=== PATIENT | female | born 1940 | race Caucasian/White ===

== ENCOUNTER 2016-10-03 20:28 | Inpatient (IN) | payer MEDICARE ==
[~2016-10-03] VITALS: Ht 160 cm; Wt 58.9 kg
[~2016-10-03 20:28] MED LIST: ASPI-650 PO; ATOR10TA9 PO; DILT240C77 PO; SERT50TA5 PO
[2016-10-03] MEDS ORDERED: LABETALOL 5MG/ML, 20ML IVPush ONE (21:00)
[2016-10-03] MEDS ORDERED: ONDANSETRON 2MG/ML, 2ML IVPush ONE (21:00)
[2016-10-03] MEDS ORDERED: MORPHINE SULFATE 4 MG/ML, 1ML IVPush PRN (21:00)
[2016-10-03] MEDS ORDERED: SODIUM CHLORIDE 0.9% 1,000ML IVBOLUS ONE (21:00)
[2016-10-03] MEDS ORDERED: NITROGLYCERIN OINT 2%, 1GM TP ONE ×2 (21:00→21:17)
[2016-10-03] MEDS ORDERED: SODIUM CHLORIDE FLUSH 10ML SYR IVF ONE (21:00)
[2016-10-03] MEDS ORDERED: PROCHLORPERAZINE 5 MG/ML, 2ML IVPush ONE (21:00)
[2016-10-03] MEDS ORDERED: POTA10TA12 PO (21:09)
[2016-10-03] MEDS ORDERED: MORPHINE SULFATE 4 MG/ML, 1ML ONE (21:17)
[2016-10-03] MEDS ORDERED: LABETALOL 5MG/ML, 20ML ONE (21:17)
[2016-10-03] MEDS ORDERED: PROCHLORPERAZINE 5 MG/ML, 2ML ONE (21:17)
[2016-10-03] MEDS ORDERED: ONDANSETRON 2MG/ML, 2ML ONE (21:18)
[2016-10-03 21:30] LABS: BLOOD UREA NITROGEN 16 mg/dL (7-18)
[2016-10-03 21:36] LABS: IS PT STATUS REG ER OR PRE ER? YES
[2016-10-03] MEDS ORDERED: OMNIPAQUE 350 MG/ML, 100ML BOTTLE ONE (22:28)
[2016-10-04] MEDS ORDERED: ACETAMINOPHEN 325 MG TABLET PO PRN (01:00)
[2016-10-04] MEDS ORDERED: NITROGLYCERIN 0.4 MG BOTTLE (25 TABS) SL PRN (01:00)
[2016-10-04] MEDS ORDERED: morphine SULFATE 10 MG/ML, 1ML IVPush PRN (01:00)
[2016-10-04] MEDS ORDERED: ONDANSETRON 2MG/ML, 2ML IVPush PRN (01:00)
[2016-10-04] MEDS ORDERED: ATORVASTATIN 10 MG TABLET PO SCH (01:00)
[2016-10-04] MEDS ORDERED: BISACODYL 10 MG SUPP PR PRN (01:00)
[2016-10-04] MEDS ORDERED: hydrALAzine 20 MG/ML, 1ML IV PRN (01:00)
[2016-10-04] MEDS ORDERED: POLYETHYLENE GLYCOL 17 GM PACKET PO PRN (01:00)
[2016-10-04 01:05] VITALS: BP 179/90
[2016-10-04] MEDS: CARVEDILOL 12.5 MG TABLET PO SCH ×3 (01:54→18:00)
[2016-10-04 03:28] LABS: IS PT STATUS REG ER OR PRE ER? NO
[2016-10-04 05:45] VITALS: BP 175/82
[2016-10-04 07:40] VITALS: BP 166/93
[2016-10-04] MEDS ORDERED: SODIUM CHLORIDE FLUSH 3ML SYRINGE IVF SCH (09:00)
[2016-10-04] MEDS ORDERED: ENOXAPARIN 40 MG/0.4 ML SQ SCH (09:00)
[2016-10-04] MEDS ORDERED: ASPIRIN 325 MG TABLET EC PO SCH (09:00)
[2016-10-04] MEDS ORDERED: POTASSIUM CHLORIDE 10 MEQ TABLET.ER PO SCH (09:00)
[2016-10-04] MEDS ORDERED: SERTRALINE 50MG TABLET PO SCH (09:00)
[2016-10-04] MEDS ORDERED: DILTIAZEM 240 MG CAP.ER.24H PO SCH (09:00)
[2016-10-04] MEDS ORDERED: SENNA/DOCUSATE TABLET PO SCH (09:00)
[2016-10-04 09:17] LABS: IS PT STATUS REG ER OR PRE ER? NO
[2016-10-04] MEDS ORDERED: REGADENOSON 0.4 MG/5 ML SYRINGE ONE (12:21)
[2016-10-04 14:05] VITALS: BP 123/73
[2016-10-04] MEDS ORDERED: CARV12.543 PO (15:16)
[2016-10-04] MEDS ORDERED: KETOROLAC 30 MG/1 ML IV PRN (18:00)
[2016-10-04] MEDS ORDERED: METHOCARBAMOL 500 MG TABLET PO PRN (18:00)
== END 2016-10-04 18:31 | disposition home or self-care (01) | DRG 305 ==
LOC: ED 22:19 → EDIP 23:09 → 5SO 10-04 00:26
DX: I16.0 Hypertensive urgency (principal); I16.9 Hypertensive crisis, unspecified; I24.9 Acute ischemic heart disease, unspecified; E78.5 Hyperlipidemia, unspecified; I10 Essential (primary) hypertension; I65.22 Occlusion and stenosis of left carotid artery; M19.90 Unspecified osteoarthritis, unspecified site; Z66 Do not resuscitate; F32.9 Major depressive disorder, single episode, unspecified; Z87.891 Personal history of nicotine dependence; I69.320 Aphasia following cerebral infarction; Z79.82 Long term (current) use of aspirin; Z79.899 Other long term (current) drug therapy
CPT/HCPCS: 36415; 70450; 70496; 70498; 71010; 78452; 80048; 82040; 84439; 84443; 84484; 85025; 85610; 85730; 93005; 93017; 96361; 96374; 96375; J2405; J2785; Q9967; A9502; C9898; J0780; J7030